=== PATIENT | female | born 1950 | race Caucasian/White ===

== ENCOUNTER 2024-04-07 21:38 | Emergency (ER) | payer OTHER, MEDICARE ==
[~2024-04-07] VITALS: Ht 160 cm; Wt 61.7 kg
[~2024-04-07 21:38] MED LIST: DENO60DI SQ; LISI-209 PO; METO50TA7 PO; VITD2000 PO
[2024-04-07 21:42] VITALS: BP_SYST 160; PULSE 74; RESP 18; TEMP 98; O2SAT 98
[2024-04-07] MEDS: LORazepam 2 MG/ML VIAL IM ONE (22:01)
[2024-04-08 00:08] VITALS: BP_SYST 102; PULSE 74; RESP 18; TEMP 98; O2SAT 98
== END 2024-04-08 00:08 | disposition home or self-care (01) ==
LOC: SED 21:38
DX: F41.9 Anxiety disorder, unspecified (principal); R06.4 Hyperventilation; R42 Dizziness and giddiness; R00.2 Palpitations; I10 Essential (primary) hypertension; Z79.899 Other long term (current) drug therapy
CPT/HCPCS: 99283; 96372; J2060